=== PATIENT | female | born 1930 | race American Indian/Alaskan Native ===

== ENCOUNTER 2016-05-11 15:20 | Inpatient (IN) | payer MEDICARE ==
[2016-05-11] MEDS ORDERED: DULCOLAX PR PRN (16:46)
[2016-05-11] MEDS ORDERED: SENOKOT PO PRN (16:46)
[2016-05-11] MEDS ORDERED: NORCO 5/325 PO PRN (16:51)
--- NOTE | 2016-05-11 16:59 | History and Physical Report ---
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 In comparison, pt with drop in H/H overnight from 9.0/30.3 to 7.8/26.2; will recheck in AM, check stool for occult blood. Pt also with improved afternoon BP after medication adjustments. Will continue to follow and adjust as needed. Pt continues with functional deficits s/p AKA. Pt remains an appropriate candidate for IRU admission. PREVIOUS FUNCTIONAL STATUS: Independent with ADLs, gait, transfers CURRENT FUNCTIONAL STATUS: modA for transfers; s/u to maxA for ADLs HPI 85 y.o. female admitted to [facility] with non-healing LLE ulcer with foul odor. Pt was evaluated by Vascular surgery and recommended for left AKA secondary to extent of gangrene. Post-op course significant for uncontrolled blood pressure , ranging from 155-225/60-94. Pt was not previously on any anti-hypertensives and has not been seen by a physician in many years. Leukocytosis has improved with IV ABX, WBC 23.1 at max, 11.4 on 05/11. Pt is now admitted to IRU for aggressive therapies and ongoing medical management. Past History Past Medical History: hypertension Past Surgical History: Other (no surgeries prior to admission, now s/p Left AKA) Social history: lives with family (grandson). denies: smoking (former), alcohol abuse Family history: diabetes Medications and Allergies Allergies Allergy/AdvReac Type Severity Reaction Status Date / Time No Known Allergies Allergy Unverified 05/04/16 14:56 Home Medications Medication Instructions Recorded Confirmed Last Taken Type Acetaminophen [Acetaminophen TAB] 650 mg PO Q6H PRN #30 tablet 05/11/16 Unknown Rx HYDROcodone/APAP 5-325 [[place] 1 each PO Q4H PRN #30 tablet 05/11/16 Unknown Rx 5-325 mg TAB] Labetalol [Normodyne TAB] 200 mg PO BID tablet 05/11/16 Unknown Rx Ondansetron [Zofran INJ] 4 mg IV Q4H PRN #30 vial 05/11/16 Unknown Rx amLODIPine [Norvasc] 10 mg PO QDAY tablet 05/11/16 Unknown Rx hydrALAZINE [Apresoline INJ] 10 mg IV Q4HR PRN #30 vial 05/11/16 Unknown Rx hydrALAZINE [Apresoline TAB] 10 mg PO Q8HR #30 tablet 05/11/16 Unknown Rx Active Meds: Active Medications Acetaminophen (Tylenol) 650 mg PO Q4H PRN PRN Reason: Pain MILD(1-3)/Fever >100.5/MENDEZ Acetaminophen/Hydrocodone Bitart ([place] 5/325) 1 each PO Q4H PRN PRN Reason: Pain, Moderate (4-6) Al Hydrox/Mg Hydrox/Simethicone (Alum-Mag Hydrox-Simeth [phone]/5ml) 30 ml PO Q4H PRN PRN Reason: Indigestion Amlodipine Besylate (Norvasc) 10 mg PO QDAY DAE Bisacodyl (Dulcolax) 10 mg MO QDAY PRN PRN Reason: Constipation unrelieved by MOM Hydralazine HCl (Apresoline) 10 mg PO Q8HR DAE Labetalol HCl (Normodyne) 200 mg PO BID DAE Senna (Senokot) 8.6 mg PO Q12H PRN PRN Reason: Laxative Effect Review of Systems All systems: negative Ears, nose, mouth and throat: no headache Cardiovascular: lightheadedness, no chest pain Respiratory: no cough, no shortness of breath Gastrointestinal: no nausea, no vomiting, no constipation (+BM on today) Genitourinary Female: other (hernandez remains in place) Exam - Constitutional General appearance: no acute distress, other (lying in bed) - EENT Eyes: EOM intact ENT: hearing intact - Neck Neck: supple, normal ROM - Respiratory Respiratory effort: normal Respiratory: bilateral: CTA - Cardiovascular Rhythm: regular Heart Sounds: Present: S1 & S2 - Extremities Extremity abnormal: other (natalia in place to left residual limb; no active drainage) - Gastrointestinal General gastrointestinal: Present: soft, non-tender, non-distended, normal bowel sounds Rectal Exam: other (stage 2 sacral pressure ulcer on left ; no odor noted) - Neurologic Neurologic: CNII-XII intact, moves all extremities (2/5 left hip flexion; otherwise 4/5 for remaining extremities), other (sensation grossly intact) - Psychiatric Psychiatric: appropriate mood/affect, intact judgment & insight, memory intact, cooperative Assessment and Plan Assessment and plan: 85 y.o. 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 The patient is medically stable, however, requires ongoing medical management. Pt is appropriate for inpatient rehabilitation admission and is thought to be able to tolerate at least 3 hours of therapy a day, 5 days a week including 1.5 hours of physical therapy and 1.5 hours of occupational therapy. Patient is able to understand and follow basic directions and has attainable rehab goals. Potential barriers/complications include wound dehiscence, falls, phantom pain, syncope, worsening anemia, DVT, PE, depression. Plan 1. Rehabilitation- Pt will undergo multidisciplinary/integrative rehab PT/OT, Nursing. Areas to be addressed include, but are not limited to PT for mobility , strengthening, transfer training, ROM, endurance, stairs, balance; OT for ADLs , household tasks, adaptive equipment; Nursing for carryover of therapies, pain control, education, skin integrity, medication management, bowel/bladder management; Nutrition as needed; imaging services director for discharge planning and equipment needs. Potential interventions include appropriate assistive device or adaptive equipment. Expected overall level of functional improvement by discharge is Pily for wheelchair mobility, Pily to supervision for ADLs and transfers. Pt will tentatively be discharged home with outpatient PT. Estimated length of stay is 7-10 days. 2. s/p left AKA- dressing changes; pain control; maintain natalia 3. acute blood loss anemia- recheck CBC in AM; check stool for occult blood 4. HTN- maintain on norvasc, labetalol, and hydralazine; follow closely and adjust as needed 5. DVT px- SCDs; hold off on A/C with noted drop in H/H - Patient Problems (1) Above knee amputation of left lower extremity Current Visit: No Status: Acute (2) Acute blood loss anemia Current Visit: Yes Status: Acute (3) HTN (hypertension) Current Visit: No Status: Acute Qualifiers: Hypertension type: essential hypertension Qualified Code(s): I10 - Essential (primary) hypertension
[2016-05-11] MEDS ORDERED: ALUM-MAG HYDROX-SIMETH 200-200-20MG/5ML PO PRN (17:49)
[2016-05-11] MEDS: NORMODYNE PO SCH (22:26)
[2016-05-11] MEDS: APRESOLINE PO SCH (22:28)
[2016-05-12 05:12] LABS: Basophils % (Auto) 0.7 % (0.0-1.8); Eosinophils % (Auto) 3.2 % (0.0-4.3); Hematocrit 26.2 % (30.3-42.9); Hemoglobin 8.1 gm/dl (10.1-14.3); Mean Corpuscular HGB Conc 31 % (30-34); Mean Corpuscular Volume 71 fl (79-97); Platelet Count 302 K/mm3 (140-440); Red Blood Count 3.71 M/mm3 (3.65-5.03)
[2016-05-12 05:13] LABS: Mean Corpuscular Hemoglobin 22 pg (28-32); Red Cell Distribution Width 21.5 % (13.2-15.2)
[2016-05-12 05:36] LABS: Alanine Aminotransferase 5 units/L (7-56); Albumin 2.3 g/dL (3.9-5); Albumin/Globulin Ratio 0.8 %; Alkaline Phosphatase 56 units/L (35-129); Anion Gap 13 mmol/L; Bilirubin,Total 0.2 mg/dL (0.1-1.2); Blood Urea Nitrogen 10 mg/dL (7-17); Carbon Dioxide 27 mmol/L (22-30); Chloride 108.5 mmol/L (98-107); Glucose 98 mg/dL (65-100); Potassium 3.5 mmol/L (3.6-5.0); Sodium 145 mmol/L (137-145); Total Protein 5.1 g/dL (6.3-8.2)
[2016-05-12] MEDS: NORVASC PO SCH (09:44)
[2016-05-12] MEDS: NORMODYNE PO SCH ×2 (09:45→23:09)
[2016-05-12] MEDS: APRESOLINE PO SCH ×4 (09:46→23:15)
--- NOTE | 2016-05-12 10:59 | Progress Note ---
Assessment and Plan 85 y.o. 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 - s/p left AKA- pain controlled; maintain natalia - acute blood loss anemia- Hgb improved from yesterday, 7.8-->8.1; stool for occult blood negative - HTN- uncontrolled overnight and this AM; hydralazine increased to 25mg TID - d/c hernandez and start bladder training - Patient Problems (1) Above knee amputation of left lower extremity Current Visit: No Status: Acute (2) Acute blood loss anemia Current Visit: Yes Status: Acute (3) HTN (hypertension) Current Visit: No Status: Acute Qualifiers: Hypertension type: essential hypertension Qualified Code(s): I10 - Essential (primary) hypertension Subjective Date of service: 05/12/16 Principal diagnosis: left AKA Interval history: Pt seen this AM, F/U IRU course, s/p Left AKA. Pt noted to have loose stools this AM; thought to be secondary to Boost; will follow, however, as pt was on IV ABX during acute care course Objective - Constitutional Vitals: Vital Signs - 12hr 05/12/16 05/12/16 05/12/16 07:30 09:44 09:45 Temperature 98.2 F Pulse Rate 68 68 Pulse Rate [ 68 Left Radial] Respiratory 20 Rate Blood Pressure 188/60 188/60 Blood Pressure 188/60 [Left Arm] O2 Sat by Pulse 94 Oximetry 05/12/16 09:46 Temperature Pulse Rate 60 Pulse Rate [ Left Radial] Respiratory Rate Blood Pressure 188/60 Blood Pressure [Left Arm] O2 Sat by Pulse Oximetry General appearance: Present: no acute distress, other (sitting up in WC) - EENT Eyes: EOM intact ENT: hearing intact - Neck Neck: supple, normal ROM - Respiratory Respiratory effort: normal Extremity abnormal: other (natalia to residual left limb) - Neurologic Neurologic: CNII-XII intact, moves all extremities - Psychiatric Psychiatric: appropriate mood/affect, cooperative - Labs CBC & Chem 7: 05/12/16 04:09 05/12/16 04:09 Labs: Abnormal lab results 05/12/16 05/12/16 Range/Units 04:09 04:09 Hgb 8.1 L (10.1-14.3) gm/dl Hct 26.2 L (30.3-42.9) % MCV 71 L (79-97) fl MCH 22 L (28-32) pg RDW 21.5 H (13.2-15.2) % Lymph % (Auto) 11.4 L (13.4-35.0) % Lymph # 1.0 L (1.2-5.4) K/mm3 Seg Neutrophils % 77.8 H (40.0-70.0) % Potassium 3.5 L (3.6-5.0) mmol/L Chloride 108.5 H (98-107) mmol/L Creatinine 0.4 L (0.7-1.2) mg/dL Calcium 8.0 L (8.4-10.2) mg/dL ALT 5 L (7-56) units/L Total Protein 5.1 L (6.3-8.2) g/dL Albumin 2.3 L (3.9-5) g/dL
[2016-05-12] MEDS ORDERED: K-DUR PO ONE (11:00)
[2016-05-12] MEDS ORDERED: APRESOLINE PO SCH (11:00)
--- NOTE | 2016-05-12 13:36 | Cat Scan Report ---
CT HEAD WITHOUT CONTRAST: 05/12/16 CLINICAL: Unresponsive. TECHNIQUE: 5-mm and 2.5-mm noncontrast scans. COMPARISON:None FINDINGS: The ventricles sulci are normal for age. A small chronic left basal ganglia lacunar infarct involves the anterior limb of the internal capsule. Mild bilateral periventricular white matter hypodensities. No mass or mass effect. No hemorrhage, edema or extra-axial collection. The sinuses are clear. Normal orbits and soft tissues. The calvarium and skull base are intact. IMPRESSION: No acute change. A single chronic left basal ganglia lacunar infarct and mild bilateral chronic white matter microangiopathy.
[2016-05-13] MEDS: APRESOLINE PO SCH ×3 (07:29→23:33)
[2016-05-13] MEDS: NORMODYNE PO SCH ×2 (08:16→21:01)
[2016-05-13] MEDS: NORVASC PO SCH (08:17)
[2016-05-14 08:22] LABS: Hematocrit 27.1 % (30.3-42.9); Hemoglobin 8.3 gm/dl (10.1-14.3); Mean Corpuscular HGB Conc 31 % (30-34); Mean Corpuscular Volume 71 fl (79-97); Platelet Count 282 K/mm3 (140-440); White Blood Count 7.9 K/mm3 (4.5-11.0)
[2016-05-14 08:26] LABS: Mean Corpuscular Hemoglobin 22 pg (28-32); Red Cell Distribution Width 22.2 % (13.2-15.2)
[2016-05-14 08:42] LABS: Anion Gap 13 mmol/L; Blood Urea Nitrogen 8 mg/dL (7-17); Calcium 8.1 mg/dL (8.4-10.2); Carbon Dioxide 27 mmol/L (22-30); Chloride 104.7 mmol/L (98-107); Glucose 84 mg/dL (65-100); Sodium 141 mmol/L (137-145)
[2016-05-14] MEDS: APRESOLINE PO SCH ×3 (09:28→23:30)
[2016-05-14] MEDS: TYLENOL PO PRN (09:29)
[2016-05-14] MEDS: NORVASC PO SCH (09:30)
[2016-05-14] MEDS: NORMODYNE PO SCH ×3 (09:30→20:30)
[2016-05-14] MEDS ORDERED: TYLENOL PO PRN (10:18)
[2016-05-14] MEDS: COZAAR PO SCH (12:36)
--- NOTE | 2016-05-14 13:41 | Consultation ---
History of Present Illness - Reason for Consult Consult date: 05/13/16 Assist in management of hypertension in a patient with left AKA. - History of Present Illness Patient is an 85-year-old female with history of hypertension and left AKA. Patient's blood pressure has been very elevated with systolic blood pressure in the 200s. CT scan was unremarkable for any acute findings. Was consulted for management of hypertension. Patient denies headache, blurred vision, chest pain , palpitation, shortness of breath, PND or pedal edema. Past History Past Medical History: hypertension Past Surgical History: Other (no surgeries prior to admission, now s/p Left AKA) Social history: lives with family (grandson). denies: smoking (former), alcohol abuse Family history: diabetes Medications and Allergies Allergies Allergy/AdvReac Type Severity Reaction Status Date / Time No Known Allergies Allergy Unverified 05/04/16 14:56 Home Medications Medication Instructions Recorded Confirmed Last Taken Type Acetaminophen [Acetaminophen TAB] 650 mg PO Q6H PRN #30 tablet 05/11/16 Unknown Rx HYDROcodone/APAP 5-325 [[place] 1 each PO Q4H PRN #30 tablet 05/11/16 05/14/16 Unknown Rx 5-325 mg TAB] Labetalol [Normodyne TAB] 200 mg PO BID tablet 05/11/16 05/14/16 Unknown Rx Ondansetron [Zofran INJ] 4 mg IV Q4H PRN #30 vial 05/11/16 05/14/16 Unknown Rx amLODIPine [Norvasc] 10 mg PO QDAY tablet 05/11/16 05/14/16 Unknown Rx hydrALAZINE [Apresoline INJ] 10 mg IV Q4HR PRN #30 vial 05/11/16 05/14/16 Unknown Rx hydrALAZINE [Apresoline TAB] 10 mg PO Q8HR #30 tablet 05/11/16 05/14/16 Unknown Rx Active Meds: Active Medications Acetaminophen (Tylenol) 650 mg PO Q4H PRN PRN Reason: Pain MILD(1-3)/Fever >100.5/MENDEZ Last Admin: 05/14/16 09:29 Dose: 650 mg Acetaminophen (Tylenol) 650 mg PO Q6H PRN PRN Reason: Non Cardiac Pain or Temp>100.5 Acetaminophen/Hydrocodone Bitart ([place] 5/325) 1 each PO Q4H PRN PRN Reason: Pain, Moderate (4-6) Al Hydrox/Mg Hydrox/Simethicone (Alum-Mag Hydrox-Simeth [phone]/5ml) 30 ml PO Q4H PRN PRN Reason: Indigestion Amlodipine Besylate (Norvasc) 10 mg PO QDAY [facility] [place] Last Admin: 05/14/16 09:30 Dose: 10 mg Bisacodyl (Dulcolax) 10 mg UT QDAY PRN PRN Reason: Constipation unrelieved by MOM Hydralazine HCl (Apresoline) 10 mg PO Q8H [facility] [place] Last Admin: 05/14/16 09:28 Dose: 10 mg Hydralazine HCl (Apresoline) 10 mg IV Q4HR PRN PRN Reason: Blood Pressure Labetalol HCl (Normodyne) 200 mg PO TID [facility] [place] Losartan Potassium (Cozaar) 100 mg PO QDAY [facility] [place] Last Admin: 05/14/16 12:36 Dose: 100 mg Senna (Senokot) 8.6 mg PO Q12H PRN PRN Reason: Laxative Effect Review of Systems Constitutional: no weight loss, no fever, no chills Ears, nose, mouth and throat: no ear pain, no nasal congestion, no epistaxis, no bleeding gums, no dysphagia, no hoarseness, no sore throat, no odynophagia, no headache Breasts: normal Cardiovascular: no chest pain, no orthopnea, no palpitations, no edema, no syncope, no shortness of breath, no dyspnea on exertion, no paroxysmal nocturnal dyspnea Respiratory: no cough, no shortness of breath, no wheezing Gastrointestinal: no abdominal pain, no nausea, no vomiting, no diarrhea, no constipation, no change in bowel habits, no hematemesis, no melena Genitourinary Female: no flank pain, no dysuria, no urinary frequency, no vaginal discharge Rectal: no pain, no incontinence, no hemorrhoids Musculoskeletal: no neck stiffness, no neck pain, no low back pain, no leg numbness/tingling, no morning stiffness, no muscle weakness, no muscle cramps Integumentary: no rash, no pruritis, no redness, no lesions Neurological: no head injury, no paralysis, no numbness, no tingling Psychiatric: no anxiety, no depression Endocrine: no cold intolerance, no heat intolerance, no polyphagia, no excessive thirst, no polydipsia, no polyuria, no palpatations Hematologic/Lymphatic: no easy bruising, no easy bleeding, no lymphadenopathy Exam - Constitutional Vitals: Temp Pulse Resp BP Pulse Ox 96.8 F L 52 L 18 149/66 95 05/13/16 20:33 05/14/16 12:36 05/14/16 11:40 05/14/16 12:36 05/14/16 11:40 General appearance: Present: no acute distress, well-nourished - EENT Eyes: Present: PERRL ENT: hearing intact, clear oral mucosa - Neck Neck: Present: supple, normal ROM - Respiratory Respiratory effort: normal Respiratory: bilateral: CTA - Cardiovascular Heart Sounds: Present: S1 & S2. Absent: rub, click - Extremities Extremities: no ischemia, No edema Extremity abnormal: other (left AKA) Peripheral Pulses: within normal limits - Abdominal General gastrointestinal: Present: soft, non-tender, non-distended, normal bowel sounds Female genitourinary: Present: normal - Integumentary Integumentary: Present: clear, warm, dry - Musculoskeletal Musculoskeletal: gait normal, strength equal bilaterally - Psychiatric Psychiatric: appropriate mood/affect, intact judgment & insight - Neurologic Neurologic: CNII-XII intact Results - Labs CBC & Chem 7: 05/14/16 07:27 05/14/16 07:27 Labs: Abnormal lab results 05/14/16 05/14/16 Range/Units 07:27 07:27 Hgb 8.3 L (10.1-14.3) gm/dl Hct 27.1 L (30.3-42.9) % MCV 71 L (79-97) fl MCH 22 L (28-32) pg RDW 22.2 H (13.2-15.2) % Creatinine 0.4 L (0.7-1.2) mg/dL Calcium 8.1 L (8.4-10.2) mg/dL Assessment and Plan 1. Hypertensive urgency: Increase labetalol to 200 mg 3 times a day from twice a day, commence Losartan 100 mg daily. continue with Amlodipine 10 mg daily. 2. Left AKA-stable: Pt /OT per Rehab Physician 3. Anemia: Likely secondary to Chronic disease. Anemia w/u with iron, TIBC, B12 , Folate,
--- NOTE | 2016-05-14 15:48 | IRU Plan of Care ---
Interdisciplinary Plan of Care - IP IRU INTERDISCIPLINARY PLAN: [facility] Inpatient Rehab Unit Plan of Care IRU Interdisciplinary Care Plan Start: 05/11/16 16: 53 Freq: Admission then PRN Status: Active Document 05/14/16 09:55 DB (Rec: 05/14/16 10:00 DB [id number]) Interdisciplinary Problem List Interdisciplinary Problem List Interdisciplinary Problem List Impaired Bathing/Grooming Query Text:Answers will Trigger Problems Impaired Dressing and Outcomes on Worklist. Impaired Mobility Impaired Transfers Impaired Bladder/Bowel Management Impaired Toileting Pain Management Knowledge Deficits Impaired Skin/Tissue Integrity Impaired Safety Medications Education IRU Interdisciplinary Care Plan Therapy Services Therapy Services Will Include: Physical Therapy Query Text:Patient will be seen for a Occupational Therapy minimum of 3 hours of daily therapy 5 out of 7 days a week. Therapy intensity may be adjusted within a 7 consecutive day period to effectively serve the individual needs of the patient. Treatment Frequency/Intensity/Duration Treatment Frequency 5 days per week Treatment Intensity 1.5 hours per discipline (PT/OT ) daily Treatment Duration 10-14 days Problem Area: Eating/Swallowing Eating/Swallowing Outcomes Eating/Swallowing Interventions Problem Area: Bathing/Grooming Bathing/Grooming Outcomes Improve [place] w/ Grooming Improve [place] w/ Bathing Bathing/Grooming Interventions ADL Training Therapeutic Activity Activity Tolerance Work Patient/Caregiver Education Problem Area: Dressing Dressing Outcomes Improve [place] w/ UB Dressing Improve [place] w/ LB Dressing Dressing Interventions ADL Training Neuromuscular Re-Education Therapeutic Exercise Balance Work Patient/Caregiver Education Problem Area: Mobility Mobility Outcomes Improve [place] w/ Bed Mobility Improve [place] w/ Ambulation Improve [place] w/ Stairs /Curb Improve [place] w/ Wheelchair Mobility Interventions Therapeutic Exercise Neuromuscular Re-Ed. Activity Tolerance Work Use of Assistive Devices Patient/Caregiver Education Bed Mobility Work Gait Training W/C Mobility Work Problem Area: Transfers Transfers Outcomes Improve [place] w/ Bed Transfers Improve [place] w/ Toilet Transfers Improve [place] w/ Tub/ Shower Transfers Improve [place] w/ Car Transfers Transfers Interventions Transfer Training Therapeutic Exercise Neuromuscular Re-Education Activity Tolerance Work Use of Assistive Devices Patient/Caregiver Education Problem Area: Bowel/Bladder Managment Bowel/Bladder Outcomes Continent of Bladder Continent of Bowel Bowel/Bladder Interventions Bladder Training Program Bowel Training Program Medication Education Patient/Caregiver Education Problem Area: Toileting Toileting Outcomes Improve [place] w/ Toileting Toileting Interventions ADL Training Balance Work Patient/Caregiver Education Problem Area: Nutrition Nutrition Outcomes Understand and Comply w/ Diet Nutrition Interventions Nutritional Counseling Monitor Nutrient Intake Patient/Caregiver Education Problem Area: Comprehension Comprehension Outcomes Comprehension Interventions Problem Area: Expression Expression Outcomes Expression Interventions Problem Area: Problem Solving Problem Solving Outcomes Problem Solving Interventions Problem Area: Memory Memory Outcomes Memory Interventions Problem Area: Pain Management Pain Management Outcomes Demonstrate/Verbalize Pain Strategies Pain Management Interventions Medication Management Positioning/Turning Patient/Caregiver Education Problem Area: Knowledge Deficits Knowledge Deficits Outcomes Verbalize Precautions Knowledge Deficits Interventions Medication Use Education Body Mechanics/Joint Protection Education Disease Management Education Health Maintainence Education Safety Education Problem Area: Skin/Tissue Integrity Skin/Tissue Integrity Outcomes Exhibit Healing of Wound/ Incision Demonstrate Understanding of Pressure Relief Demonstrate Understanding of Self Wound Care Skin/Tissue Integrity Interventions Skin/Wound Care Pressure Relief Instruction Dressing Change Education Positioning/Turning Problem Area: Social Interaction Social Interaction Outcomes Social Interaction Interventions Problem Area: Adjustment to Disability Adjustment to Disability Outcomes Adjustment to Disability Interventions Problem Area: Discharge Concerns Discharge Concerns Outcomes Discharge Home w/ Necessary Equipment Have Home Health/Outpatient Services Discharge Concerns Interventions Discharge Planning Family/Caregiver Conference Family/Caregiver Training Problem Area: Community Reintegration Community Reintegration Outcomes Demonstrate Understanding of Community Resources Community Reintegration Interventions Provide Community Resources Problem Area: Home Management Home Management Outcomes Home Management Interventions Problem Area: Safety Safety Outcomes Provide Safe Environment Perform Selfcare Safely Demonstrate Good Safety w/ Transfers/Mobility Safety Interventions Identify Fall Risk Floweree Pt. to Environment Reduce Environmental Hazards Problem Area: Medication Education Medication Education Outcomes Patient/Caregiver will Verbalize Understanding of Medications Medication Education Interventions Explain Administration/Side Effects/Interactions Problem Area: Diabetes Education Diabetes Education Outcomes Diabetes Education Interventions Problem Area: Oxygenation Oxygenation Outcomes Oxygenation Interventions Problem Area: Cardiovascular Cardiovascular Outcomes Cardiovascular Interventions Physician Only Medical Prognosis and Rehabilitation Patient demonstrates good Potential (Completed by Physician) rehab potential. Medical Prognosis: Good This plan of care has been developed based on the findings from the pre- admission assessment, post admission physician evaluation, information gathered from the assessments from all therapy disciplines and other pertinent clinicians. The plan of care has been reviewed and discussed in collaboration with the interdisciplinary team. The plan of care will be reviewed and updated at least weekly. 85 y.o. 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 The patient remains at risk for wound dehiscence, falls, phantom pain, syncope, worsening anemia, DVT, PE. Blood pressure remains uncontrolled; IM consulted for better management; pt became lethargic over weekend with increased dose of hydralazine, so this will need to be monitored closely. Ulo removed over weekend; +bladder incontinence; toileting schedule initiated; no further diarrhea reported. Pt is tolerating therapies and has ongoing functional deficits. Pt remains an appropriate candidate for IRU admission.
--- NOTE | 2016-05-14 15:57 | Progress Note ---
Assessment and Plan 85 y.o. 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 - s/p left AKA- pain controlled; maintain natalia - acute blood loss anemia- Hgb continues to slowly improve - HTN- remains uncontrolled; appreciate IM consult, med changes noted; follow BP closely as pt becomes lethargic when BP drops - toileting schedule for bladder incontinence - stage 2 sacral pressure ulcer- ongoing wound care - hypokalemia- resolved - Patient Problems (1) Above knee amputation of left lower extremity Current Visit: Yes Status: Acute (2) Acute blood loss anemia Current Visit: Yes Status: Acute (3) HTN (hypertension) Current Visit: No Status: Acute Qualifiers: Hypertension type: essential hypertension Qualified Code(s): I10 - Essential (primary) hypertension (4) Bladder incontinence Current Visit: Yes Status: Acute Qualifiers: Urinary Incontinence type: U (5) Stage II pressure ulcer of sacral region Current Visit: Yes Status: Acute Subjective Date of service: 05/14/16 Principal diagnosis: left AKA Interval history: Pt seen this AM in room, F/U IRU course, s/p Left AKA. Denies any further loose stools. Reports phantom pain at residual limb that started on today; will follow Objective - Constitutional Vitals: Vital Signs - 12hr 05/14/16 05/14/16 05/14/16 09:00 09:28 10:00 Pulse Rate 62 Pulse Rate [ 65 Left Radial] Respiratory 18 Rate Blood Pressure 216/88 Blood Pressure 200/78 [Left Arm] O2 Sat by Pulse Oximetry 05/14/16 05/14/16 05/14/16 11:40 12:36 14:34 Pulse Rate 52 L 57 L Pulse Rate [ 52 L Left Radial] Respiratory 18 Rate Blood Pressure 149/66 157/58 Blood Pressure 149/66 [Left Arm] O2 Sat by Pulse 95 Oximetry General appearance: Present: no acute distress, other (sitting up in bed) - EENT Eyes: EOM intact ENT: hearing intact - Neck Neck: supple, normal ROM - Respiratory Respiratory effort: normal Respiratory: bilateral: CTA - Cardiovascular Rhythm: regular Heart Sounds: Present: S1 & S2 - Gastrointestinal General gastrointestinal: Present: soft, non-tender, non-distended, normal bowel sounds - Neurologic Neurologic: CNII-XII intact - Psychiatric Psychiatric: cooperative (lethargic) - Allied health notes Allied health notes reviewed: PT (maxA for bed mobility and transfers) - Labs CBC & Chem 7: 05/14/16 07:27 05/14/16 07:27 Labs: Abnormal lab results 05/14/16 05/14/16 Range/Units 07:27 07:27 Hgb 8.3 L (10.1-14.3) gm/dl Hct 27.1 L (30.3-42.9) % MCV 71 L (79-97) fl MCH 22 L (28-32) pg RDW 22.2 H (13.2-15.2) % Creatinine 0.4 L (0.7-1.2) mg/dL Calcium 8.1 L (8.4-10.2) mg/dL
[2016-05-15] MEDS: NORMODYNE PO SCH ×3 (08:50→21:00)
[2016-05-15] MEDS: NORVASC PO SCH (08:50)
[2016-05-15] MEDS: COZAAR PO SCH (08:51)
[2016-05-15] MEDS: APRESOLINE PO SCH ×2 (08:57→19:01)
--- NOTE | 2016-05-15 09:26 | Progress Note ---
Assessment and Plan 1. Malignant Hypertensive: Increase labetalol to 200 mg 3 times a day from twice a day, commence Losartan 100 mg daily. continue with Amlodipine 10 mg daily.Consider clonidine if No doses of prior meds are omitted 2. Left AKA-stable: Pt /OT per Rehab Physician 3. Anemia: Likely secondary to Chronic disease. Anemia w/u with iron, TIBC, B12 , Folate, Subjective Date of service: 05/15/16 Principal diagnosis: HTN, left AKA Interval history: No Headache. BP still elevated Objective - Constitutional Vitals: Vital Signs - 12hr 05/14/16 05/15/16 05/15/16 23:30 08:50 08:51 Pulse Rate 72 62 62 Blood Pressure 190/72 207/84 207/84 General appearance: Present: no acute distress, well-nourished - EENT Eyes: PERRL, EOM intact ENT: hearing intact, clear oral mucosa Ears: bilateral: normal - Neck Neck: supple, normal ROM - Respiratory Respiratory effort: normal Respiratory: bilateral: CTA - Breasts Breasts: normal - Cardiovascular Rhythm: regular Heart Sounds: Present: S1 & S2. Absent: gallop, rub Extremities: pulses intact, No edema, normal color, Full ROM Extremity abnormal: other (left AKA) - Gastrointestinal General gastrointestinal: Present: soft, non-tender, non-distended, normal bowel sounds - Genitourinary Female genitourinary: normal - Integumentary Integumentary: clear, warm, dry - Musculoskeletal Musculoskeletal: 1, strength equal bilaterally - Neurologic Neurologic: moves all extremities - Psychiatric Psychiatric: memory intact, appropriate mood/affect, intact judgment & insight - Labs CBC & Chem 7: 05/14/16 07:27 05/14/16 07:27
--- NOTE | 2016-05-15 14:01 | Progress Note ---
Assessment and Plan 85 y.o. 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 - s/p left AKA- pain controlled; maintain natalia - HTN- remains uncontrolled; pt continues with intermittent lethargy when BP drops; discussed with IM; continue to follow closely - toileting schedule for bladder incontinence - stage 2 sacral pressure ulcer- ongoing wound care - Patient Problems (1) Above knee amputation of left lower extremity Current Visit: Yes Status: Acute (2) HTN (hypertension) Current Visit: No Status: Acute Qualifiers: Hypertension type: essential hypertension Qualified Code(s): I10 - Essential (primary) hypertension (3) Bladder incontinence Current Visit: Yes Status: Acute Qualifiers: Urinary Incontinence type: urinary incontinence without sensory awareness Qualified Code(s): N39.42 - Incontinence without sensory awareness (4) Stage II pressure ulcer of sacral region Current Visit: Yes Status: Acute Subjective Date of service: 05/15/16 Principal diagnosis: left AKA Interval history: Pt seen in dining room on today, F/U IRU course, s/p Left AKA. Pt denies any pain; eating lunch with some spillage noted Objective - Constitutional Vitals: Vital Signs - 12hr 05/15/16 05/15/16 05/15/16 08:00 08:50 08:51 Temperature 97.7 F Pulse Rate 62 62 Pulse Rate [ 62 Left Brachial] Respiratory 18 Rate Blood Pressure 207/84 207/84 Blood Pressure 207/84 [Left Arm] O2 Sat by Pulse 97 Oximetry 05/15/16 10:30 Temperature Pulse Rate Pulse Rate [ 47 L Left Brachial] Respiratory Rate Blood Pressure Blood Pressure 110/50 [Left Arm] O2 Sat by Pulse Oximetry General appearance: Present: no acute distress - EENT Eyes: EOM intact ENT: hearing intact - Neck Neck: supple, normal ROM - Respiratory Respiratory effort: normal Extremities: No edema - Musculoskeletal Musculoskeletal: generalized weakness - Neurologic Neurologic: CNII-XII intact - Psychiatric Psychiatric: appropriate mood/affect, cooperative - Allied health notes Allied health notes reviewed: PT (maxA for transfers and WC mobility), OT ( total A with transfers; maxA for sitting balance) - Labs CBC & Chem 7: 05/14/16 07:27 05/14/16 07:27
[2016-05-16] MEDS: APRESOLINE PO SCH ×4 (01:09→23:50)
--- NOTE | 2016-05-16 04:02 | Progress Note ---
Hospitalist Physical - Constitutional Vitals: Temp Pulse Resp BP Pulse Ox 97.6 F 60 20 148/88 99 05/15/16 20:00 05/15/16 21:00 05/15/16 20:00 05/15/16 21:00 05/15/16 20:00 General appearance: Present: no acute distress Results - Labs CBC & Chem 7: 05/14/16 07:27 05/14/16 07:27 Labs: Laboratory Last Values WBC 7.9 K/mm3 (4.5-11.0) 05/14/16 07:27 RBC 3.80 M/mm3 (3.65-5.03) 05/14/16 07:27 Hgb 8.3 gm/dl (10.1-14.3) L 05/14/16 07:27 Hct 27.1 % (30.3-42.9) L 05/14/16 07:27 MCV 71 fl (79-97) L 05/14/16 07:27 MCH 22 pg (28-32) L 05/14/16 07:27 MCHC 31 % (30-34) 05/14/16 07:27 RDW 22.2 % (13.2-15.2) H 05/14/16 07:27 Plt Count 282 K/mm3 (140-440) 05/14/16 07:27 Lymph % (Auto) 11.4 % (13.4-35.0) L 05/12/16 04:09 [place] % (Auto) 6.9 % (0.0-7.3) 05/12/16 04:09 Eos % (Auto) 3.2 % (0.0-4.3) 05/12/16 04:09 Baso % (Auto) 0.7 % (0.0-1.8) 05/12/16 04:09 Lymph # 1.0 K/mm3 (1.2-5.4) L 05/12/16 04:09 [place] # 0.6 K/mm3 (0.0-0.8) 05/12/16 04:09 Eos # 0.3 K/mm3 (0.0-0.4) 05/12/16 04:09 Baso # 0.1 K/mm3 (0.0-0.1) 05/12/16 04:09 Seg Neutrophils % 77.8 % (40.0-70.0) H 05/12/16 04:09 Seg Neutrophils # 7.0 K/mm3 (1.8-7.7) 05/12/16 04:09 Sodium 141 mmol/L (137-145) 05/14/16 07:27 Potassium 4.0 mmol/L (3.6-5.0) 05/14/16 07:27 Chloride 104.7 mmol/L (98-107) 05/14/16 07:27 Carbon Dioxide 27 mmol/L (22-30) 05/14/16 07:27 Anion Gap 13 mmol/L 05/14/16 07:27 BUN 8 mg/dL (7-17) 05/14/16 07:27 Creatinine 0.4 mg/dL (0.7-1.2) L 05/14/16 07:27 Estimated GFR > 60 ml/min 05/14/16 07:27 BUN/Creatinine Ratio 20.00 % 05/14/16 07:27 Glucose 84 mg/dL (65-100) 05/14/16 07:27 POC Glucose 182 (70-105) H 05/12/16 13:12 Hemoglobin A1c 5.8 % (4-6) 05/12/16 04:09 Calcium 8.1 mg/dL (8.4-10.2) L 05/14/16 07:27 Total Bilirubin 0.2 mg/dL (0.1-1.2) 05/12/16 04:09 AST 14 units/L (5-40) 05/12/16 04:09 ALT 5 units/L (7-56) L 05/12/16 04:09 Alkaline Phosphatase 56 units/L (35-129) 05/12/16 04:09 Total Protein 5.1 g/dL (6.3-8.2) L 05/12/16 04:09 Albumin 2.3 g/dL (3.9-5) L 05/12/16 04:09 Albumin/Globulin Ratio 0.8 % 05/12/16 04:09
[2016-05-16] MEDS: NORVASC PO SCH (09:51)
[2016-05-16] MEDS: NORMODYNE PO SCH ×2 (09:51→14:00)
[2016-05-16] MEDS: COZAAR PO SCH (09:52)
[2016-05-16] MEDS ORDERED: NORMODYNE PO SCH ×2 (14:00→14:06)
--- NOTE | 2016-05-16 14:15 | Progress Note ---
Assessment and Plan 85 y.o. 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 Pt cannot actively participate with therapies due to lethargy likely caused by BP meds; may need to trial an alternative med to assist with better control - toileting schedule for bladder incontinence - stage 2 sacral pressure ulcer- ongoing wound care - Patient Problems (1) Above knee amputation of left lower extremity Current Visit: Yes Status: Acute (2) HTN (hypertension) Current Visit: No Status: Acute Qualifiers: Hypertension type: essential hypertension Qualified Code(s): I10 - Essential (primary) hypertension (3) Bladder incontinence Current Visit: Yes Status: Acute Qualifiers: Urinary Incontinence type: urinary incontinence without sensory awareness Qualified Code(s): N39.42 - Incontinence without sensory awareness (4) Stage II pressure ulcer of sacral region Current Visit: Yes Status: Acute Subjective Date of service: 05/16/16 Principal diagnosis: left AKA Interval history: Pt seen in dining room and in PT, F/U IRU course, s/p Left AKA. Chart reviewed from admission and acute care; increased lethargy noted since initiating on labetalol on 05/10/2016. Pending return call from to discuss. Will reduce dose and follow BP and lethargy Objective - Constitutional Vitals: Vital Signs - 12hr 05/16/16 05/16/16 05/16/16 07:30 09:51 11:24 Temperature 99.5 F Pulse Rate 68 51 L Pulse Rate [ 68 Left Brachial] Respiratory 20 Rate Blood Pressure 168/68 145/83 Blood Pressure 168/68 [Left Arm] O2 Sat by Pulse 95 Oximetry General appearance: Present: other (opens eyes to name, however, limited participation with therapies) - EENT Eyes: EOM intact ENT: hearing intact - Neck Neck: supple - Respiratory Respiratory effort: normal Respiratory: bilateral: CTA - Cardiovascular Heart Sounds: Present: S1 & S2 Extremities: No edema - Gastrointestinal General gastrointestinal: Present: soft, non-tender, non-distended, normal bowel sounds - Psychiatric Psychiatric: other (lethargic; feeding self intermittently durign lunch) - Labs CBC & Chem 7: 05/14/16 07:27 05/14/16 07:27
--- NOTE | 2016-05-16 18:06 | Progress Note ---
Assessment and Plan 1. Malignant Hypertensive: improving. D/c Labetalol b/c of lethergy and commence pt on Nifedipine 60 mg bid. d/c Dr Tobar 2. Left AKA-stable: Pt /OT per Rehab Physician 3. Anemia: Likely secondary to Chronic disease. Anemia w/u with iron, TIBC, B12 , Folate, Trend H/H Subjective Date of service: 05/16/16 Principal diagnosis: HTN, left AKA Interval history: No Headache. Lethergic. D/c with Physical therapy MD. Objective - Constitutional Vitals: Vital Signs - 12hr 05/16/16 05/16/16 05/16/16 07:30 09:51 11:24 Temperature 99.5 F Pulse Rate 68 51 L Pulse Rate [ 68 Left Brachial] Respiratory 20 Rate Blood Pressure 168/68 145/83 Blood Pressure 168/68 [Left Arm] O2 Sat by Pulse 95 Oximetry 05/16/16 14:57 Temperature Pulse Rate 58 L Pulse Rate [ Left Brachial] Respiratory Rate Blood Pressure 173/111 Blood Pressure [Left Arm] O2 Sat by Pulse Oximetry General appearance: Present: no acute distress, other (lethergic for meaningful PT/OT) - EENT Eyes: PERRL ENT: hearing intact, clear oral mucosa Ears: bilateral: normal - Neck Neck: supple - Respiratory Respiratory effort: normal Respiratory: bilateral: CTA - Cardiovascular Rhythm: regular Heart Sounds: Present: S1 & S2 Extremities: no ischemia Extremity abnormal: other (left AKA) - Gastrointestinal General gastrointestinal: Present: soft, non-tender - Genitourinary Female genitourinary: normal - Integumentary Integumentary: clear, warm - Musculoskeletal Musculoskeletal: strength equal bilaterally - Neurologic Neurologic: CNII-XII intact, moves all extremities - Psychiatric Psychiatric: memory intact, appropriate mood/affect, intact judgment & insight - Labs CBC & Chem 7: 05/14/16 07:27 05/14/16 07:27
[2016-05-17] MEDS: APRESOLINE PO SCH ×2 (09:39→16:45)
[2016-05-17] MEDS: COZAAR PO SCH (10:01)
--- NOTE | 2016-05-17 13:59 | Progress Note ---
Assessment and Plan 85 y.o. 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 Barriers- possible CVA, fluctuating lethargy, uncontrolled BP. - Patient Problems (1) Above knee amputation of left lower extremity Current Visit: Yes Status: Acute (2) HTN (hypertension) Current Visit: No Status: Acute Qualifiers: Hypertension type: essential hypertension Qualified Code(s): I10 - Essential (primary) hypertension (3) Bladder incontinence Current Visit: Yes Status: Acute Qualifiers: Urinary Incontinence type: urinary incontinence without sensory awareness Qualified Code(s): N39.42 - Incontinence without sensory awareness (4) Stage II pressure ulcer of sacral region Current Visit: Yes Status: Acute Subjective Date of service: 05/17/16 Principal diagnosis: HTN, left AKA Interval history: Pt seen in room this AM, F/U IRU course, s/p Left AKA. Noted to have increased alertness initially, feeding self breakfast. However, later noted to cough on thin liquids; right sided weakness noted and increased drooling. Case discussed with IM; CT Brain ordered; made NPO for MBS on today Objective - Constitutional Vitals: Vital Signs - 12hr 05/17/16 05/17/16 05/17/16 07:30 09:39 10:01 Temperature 97.5 F L Pulse Rate 62 62 Pulse Rate [ 62 Left Brachial] Respiratory 18 Rate Blood Pressure 184/60 184/60 Blood Pressure 184/60 [Left Arm] O2 Sat by Pulse 95 Oximetry General appearance: Present: no acute distress - EENT Eyes: EOM intact ENT: hearing intact - Neck Neck: supple - Respiratory Respiratory effort: normal Respiratory: bilateral: CTA - Cardiovascular Rhythm: regular Heart Sounds: Present: S1 & S2 Extremities: No edema - Gastrointestinal General gastrointestinal: Present: soft, non-tender, non-distended, normal bowel sounds - Integumentary Integumentary: clear - Musculoskeletal Musculoskeletal: 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
--- NOTE | 2016-05-17 14:18 | Cat Scan Report ---
CT scan of head without contrast: Compared to 05/12/16. History: Weakness, headache. Findings: Ventricles are normal in size and midline in location. Focal new ill-defined area of low attenuation noted at the left occipital region adjacent to the inner table of the calvarium measuring 3 x 2 cm in diameter. Periventricular area of low attenuation without significant interval change. No extra-axial fluid collection. Volume loss. Impression: Focal area of low attenuation left occipital region probably suggestive of acute/subacute ischemia. No hemorrhage..
--- NOTE | 2016-05-17 14:36 | Fluoroscopy Report ---
MODIFIED BARIUM SWALLOW INDICATION: Dysphagia. COMPARISON: None similar. FINDINGS: Fluoroscopy provided by radiologist for speech therapist to assess the swallowing mechanism. Food items of various consistencies given. No penetration or aspiration identified. IMPRESSION: Successful modified barium swallow. Please refer to detailed report from speech pathologist. Thank you for the opportunity to participate in this patient's care.
--- NOTE | 2016-05-17 16:29 | Progress Note ---
Assessment and Plan - Patient Problems (1) CVA (cerebral vascular accident) Current Visit: Yes Status: Acute Qualifiers: CVA mechanism: C Precerebral and cerebral artery: P Laterality of affected vessel: L Plan to address problem: Stroke protocol: antiplatet therapy, statin, systolic BP goal overnight betwen 165-180, (2) Stage II pressure ulcer of sacral region Current Visit: Yes Status: Acute Plan to address problem: wound care, Q 2 turns, (3) Arterial insufficiency of lower extremity Current Visit: No Status: Acute (4) HTN (hypertension) Current Visit: No Status: Acute Qualifiers: Hypertension type: essential hypertension Qualified Code(s): I10 - Essential (primary) hypertension Plan to address problem: Monitor BP q shift, continue currrent therapy, History Interval history: Pt sitting in chair, Pt has minimal right facial droop. No reported nursing events. Pt alert and responsive. Hospitalist Physical - Constitutional Vitals: Temp Pulse Resp BP Pulse Ox 97.5 F L 62 18 184/60 98 05/17/16 07:30 05/17/16 10:01 05/17/16 07:30 05/17/16 10:01 05/17/16 10:00 General appearance: Present: no acute distress - EENT Eyes: Present: PERRL, EOM intact ENT: hearing intact - Neck Neck: Present: supple - Respiratory Respiratory: bilateral: diminished - Cardiovascular Rhythm: regular Heart Sounds: Present: S1 & S2 - Extremities Extremities: no ischemia Peripheral Pulses: within normal limits - Abdominal General gastrointestinal: soft, non-distended - Integumentary Integumentary: Present: clear, dry - Psychiatric Psychiatric: appropriate mood/affect - Neurologic Neurologic: focal deficits, moves all extremities, no gait normal Results - Labs CBC & Chem 7: 05/14/16 07:27 05/14/16 07:27 Labs: Laboratory Last Values WBC 7.9 K/mm3 (4.5-11.0) 05/14/16 07:27 RBC 3.80 M/mm3 (3.65-5.03) 05/14/16 07:27 Hgb 8.3 gm/dl (10.1-14.3) L 05/14/16 07:27 Hct 27.1 % (30.3-42.9) L 05/14/16 07:27 MCV 71 fl (79-97) L 05/14/16 07:27 MCH 22 pg (28-32) L 05/14/16 07:27 MCHC 31 % (30-34) 05/14/16 07:27 RDW 22.2 % (13.2-15.2) H 05/14/16 07:27 Plt Count 282 K/mm3 (140-440) 05/14/16 07:27 Lymph % (Auto) 11.4 % (13.4-35.0) L 05/12/16 04:09 [place] % (Auto) 6.9 % (0.0-7.3) 05/12/16 04:09 Eos % (Auto) 3.2 % (0.0-4.3) 05/12/16 04:09 Baso % (Auto) 0.7 % (0.0-1.8) 05/12/16 04:09 Lymph # 1.0 K/mm3 (1.2-5.4) L 05/12/16 04:09 [place] # 0.6 K/mm3 (0.0-0.8) 05/12/16 04:09 Eos # 0.3 K/mm3 (0.0-0.4) 05/12/16 04:09 Baso # 0.1 K/mm3 (0.0-0.1) 05/12/16 04:09 Seg Neutrophils % 77.8 % (40.0-70.0) H 05/12/16 04:09 Seg Neutrophils # 7.0 K/mm3 (1.8-7.7) 05/12/16 04:09 Sodium 141 mmol/L (137-145) 05/14/16 07:27 Potassium 4.0 mmol/L (3.6-5.0) 05/14/16 07:27 Chloride 104.7 mmol/L (98-107) 05/14/16 07:27 Carbon Dioxide 27 mmol/L (22-30) 05/14/16 07:27 Anion Gap 13 mmol/L 05/14/16 07:27 BUN 8 mg/dL (7-17) 05/14/16 07:27 Creatinine 0.4 mg/dL (0.7-1.2) L 05/14/16 07:27 Estimated GFR > 60 ml/min 05/14/16 07:27 BUN/Creatinine Ratio 20.00 % 05/14/16 07:27 Glucose 84 mg/dL (65-100) 05/14/16 07:27 POC Glucose 182 (70-105) H 05/12/16 13:12 Hemoglobin A1c 5.8 % (4-6) 05/12/16 04:09 Calcium 8.1 mg/dL (8.4-10.2) L 05/14/16 07:27 Total Bilirubin 0.2 mg/dL (0.1-1.2) 05/12/16 04:09 AST 14 units/L (5-40) 05/12/16 04:09 ALT 5 units/L (7-56) L 05/12/16 04:09 Alkaline Phosphatase 56 units/L (35-129) 05/12/16 04:09 Total Protein 5.1 g/dL (6.3-8.2) L 05/12/16 04:09 Albumin 2.3 g/dL (3.9-5) L 05/12/16 04:09 Albumin/Globulin Ratio 0.8 % 05/12/16 04:09
[2016-05-17] MEDS ORDERED: SODIUM CHLORIDE FLUSH SYRINGE 10 ML IV PRN (16:33)
[2016-05-17] MEDS: APRESOLINE IV PRN ×2 (16:44→21:02)
[2016-05-17] MEDS: ZOCOR PO SCH (21:02)
[2016-05-18] MEDS: APRESOLINE PO SCH ×4 (00:49→23:46)
[2016-05-18] MEDS: COZAAR PO SCH (08:01)
[2016-05-18] MEDS: ASPIRIN PO SCH (08:01)
[2016-05-18] MEDS: APRESOLINE IV PRN ×3 (08:02→20:35)
--- NOTE | 2016-05-18 13:01 | Progress Note ---
Assessment and Plan 85 y.o. 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 - s/p left AKA- maintain natalia; denies pain - acute/subacute left occipital CVA- right hemiparesis; initiated on ASA and statin - dysphagia- continue COMPENSATION INTERN; diet downgraded on yesterday to pureed with NTL which pt tolerated well on today - HTN- improved following AM meds - toileting schedule for bladder incontinence - stage 2 sacral pressure ulcer- ongoing wound care - Patient Problems (1) Above knee amputation of left lower extremity Current Visit: Yes Status: Acute (2) HTN (hypertension) Current Visit: No Status: Acute Qualifiers: Hypertension type: essential hypertension Qualified Code(s): I10 - Essential (primary) hypertension (3) Bladder incontinence Current Visit: Yes Status: Acute Qualifiers: Urinary Incontinence type: urinary incontinence without sensory awareness Qualified Code(s): N39.42 - Incontinence without sensory awareness (4) Stage II pressure ulcer of sacral region Current Visit: Yes Status: Acute (5) Acute right hemiparesis Current Visit: Yes Status: Acute (6) Dysphagia as late effect of cerebrovascular accident (CVA) Current Visit: Yes Status: Acute (7) CVA (cerebral vascular accident) Current Visit: Yes Status: Acute Qualifiers: CVA mechanism: C Precerebral and cerebral artery: P Laterality of affected vessel: L Subjective Date of service: 05/18/16 Principal diagnosis: HTN, left AKA Interval history: Pt seen in room this AM, F/U IRU course, s/p Left AKA. Reports not sleeping well last night; pt informed of +CVA on CT yesterday. Per COMPENSATION INTERN and nursing, tolerated pureed diet/NTL well for breakfast. Denies any pain Objective - Constitutional Vitals: Vital Signs - 12hr 05/18/16 05/18/16 05/18/16 08:00 08:01 08:02 Temperature 96.7 F L Pulse Rate 73 73 Pulse Rate [ 73 Left Brachial] Respiratory 18 Rate Blood Pressure 210/89 210/89 Blood Pressure 210/89 [Left Arm] O2 Sat by Pulse 96 Oximetry 05/18/16 05/18/16 05/18/16 08:15 09:58 10:00 Temperature 99.6 F Pulse Rate Pulse Rate [ 73 82 73 Left Brachial] Respiratory 18 18 Rate Blood Pressure Blood Pressure 180/70 176/68 [Left Arm] O2 Sat by Pulse 98 96 Oximetry 05/18/16 12:52 Temperature 97.7 F Pulse Rate Pulse Rate [ 84 Left Brachial] Respiratory 18 Rate Blood Pressure Blood Pressure 152/61 [Left Arm] O2 Sat by Pulse 98 Oximetry General appearance: Present: no acute distress, other (asleep in bed, however, easily aroused) - EENT Eyes: EOM intact ENT: hearing intact - Neck Neck: supple - Respiratory Respiratory effort: normal Respiratory: bilateral: CTA - Cardiovascular Rhythm: regular Heart Sounds: Present: S1 & S2 - Gastrointestinal General gastrointestinal: Present: soft, non-tender, non-distended, normal bowel sounds - Musculoskeletal Musculoskeletal: right sided weakness - Neurologic Neurologic: other (+facial droop) - Psychiatric Psychiatric: no memory intact (oriented to self, city/state and that she is in the hospital; however, not aware of the name of the hospital) - Allied health notes Allied health notes reviewed: PT (totalA-maxA for transfers; min-maxA for sitting balance) - Labs CBC & Chem 7: 05/14/16 07:27 05/14/16 07:27
[2016-05-18] MEDS: TYLENOL PO PRN (15:24)
[2016-05-18] MEDS: ZOCOR PO SCH (20:35)
--- NOTE | 2016-05-18 20:58 | Progress Note ---
Assessment and Plan - Patient Problems (1) CVA (cerebral vascular accident) Current Visit: Yes Status: Acute Qualifiers: CVA mechanism: C Precerebral and cerebral artery: P Laterality of affected vessel: L Plan to address problem: Stroke protocol: antiplatet therapy, statin, systolic BP goal overnight betwen 165-180, (2) Stage II pressure ulcer of sacral region Current Visit: Yes Status: Acute Plan to address problem: wound care, Q 2 turns, (3) Arterial insufficiency of lower extremity Current Visit: No Status: Acute (4) HTN (hypertension) Current Visit: No Status: Acute Qualifiers: Hypertension type: essential hypertension Qualified Code(s): I10 - Essential (primary) hypertension Plan to address problem: Monitor BP q shift, continue currrent therapy, (5) DVT prophylaxis Current Visit: Yes Status: Acute History Interval history: Pt sitting in chair, Pt has minimal right facial droop. No reported nursing events. Pt alert and responsive. Hospitalist Physical - Constitutional Vitals: Temp Pulse Resp BP Pulse Ox 97.8 F 80 18 190/90 98 05/18/16 18:00 05/18/16 20:35 05/18/16 18:00 05/18/16 20:35 05/18/16 18:00 General appearance: Present: no acute distress, other (asleep in bed, however, easily aroused) - EENT Eyes: Present: PERRL ENT: hearing intact - Neck Neck: Present: supple - Respiratory Respiratory: bilateral: diminished - Cardiovascular Rhythm: regular Heart Sounds: Present: S1 & S2 - Extremities Extremities: no ischemia Peripheral Pulses: within normal limits - Abdominal General gastrointestinal: soft, non-tender, non-distended - Integumentary Integumentary: Present: clear, dry - Psychiatric Psychiatric: cooperative - Neurologic Neurologic: no CNII-XII intact, focal deficits, no moves all extremities, no gait normal Results - Labs CBC & Chem 7: 05/14/16 07:27 05/14/16 07:27 Labs: Laboratory Last Values WBC 7.9 K/mm3 (4.5-11.0) 05/14/16 07:27 RBC 3.80 M/mm3 (3.65-5.03) 05/14/16 07:27 Hgb 8.3 gm/dl (10.1-14.3) L 05/14/16 07:27 Hct 27.1 % (30.3-42.9) L 05/14/16 07:27 MCV 71 fl (79-97) L 05/14/16 07:27 MCH 22 pg (28-32) L 05/14/16 07:27 MCHC 31 % (30-34) 05/14/16 07:27 RDW 22.2 % (13.2-15.2) H 05/14/16 07:27 Plt Count 282 K/mm3 (140-440) 05/14/16 07:27 Lymph % (Auto) 11.4 % (13.4-35.0) L 05/12/16 04:09 [place] % (Auto) 6.9 % (0.0-7.3) 05/12/16 04:09 Eos % (Auto) 3.2 % (0.0-4.3) 05/12/16 04:09 Baso % (Auto) 0.7 % (0.0-1.8) 05/12/16 04:09 Lymph # 1.0 K/mm3 (1.2-5.4) L 05/12/16 04:09 [place] # 0.6 K/mm3 (0.0-0.8) 05/12/16 04:09 Eos # 0.3 K/mm3 (0.0-0.4) 05/12/16 04:09 Baso # 0.1 K/mm3 (0.0-0.1) 05/12/16 04:09 Seg Neutrophils % 77.8 % (40.0-70.0) H 05/12/16 04:09 Seg Neutrophils # 7.0 K/mm3 (1.8-7.7) 05/12/16 04:09 Sodium 141 mmol/L (137-145) 05/14/16 07:27 Potassium 4.0 mmol/L (3.6-5.0) 05/14/16 07:27 Chloride 104.7 mmol/L (98-107) 05/14/16 07:27 Carbon Dioxide 27 mmol/L (22-30) 05/14/16 07:27 Anion Gap 13 mmol/L 05/14/16 07:27 BUN 8 mg/dL (7-17) 05/14/16 07:27 Creatinine 0.4 mg/dL (0.7-1.2) L 05/14/16 07:27 Estimated GFR > 60 ml/min 05/14/16 07:27 BUN/Creatinine Ratio 20.00 % 05/14/16 07:27 Glucose 84 mg/dL (65-100) 05/14/16 07:27 POC Glucose 182 (70-105) H 05/12/16 13:12 Hemoglobin A1c 5.8 % (4-6) 05/12/16 04:09 Calcium 8.1 mg/dL (8.4-10.2) L 05/14/16 07:27 Total Bilirubin 0.2 mg/dL (0.1-1.2) 05/12/16 04:09 AST 14 units/L (5-40) 05/12/16 04:09 ALT 5 units/L (7-56) L 05/12/16 04:09 Alkaline Phosphatase 56 units/L (35-129) 05/12/16 04:09 Total Protein 5.1 g/dL (6.3-8.2) L 05/12/16 04:09 Albumin 2.3 g/dL (3.9-5) L 05/12/16 04:09 Albumin/Globulin Ratio 0.8 % 05/12/16 04:09 Triglycerides 70 mg/dL (2-149) 05/18/16 04:37 Cholesterol 114 mg/dL (50-199) 05/18/16 04:37 LDL Cholesterol Direct 55 mg/dL (50-130) 05/18/16 04:37 HDL Cholesterol 45 mg/dL (40-59) 05/18/16 04:37 Cholesterol/HDL Ratio 2.53 % 05/18/16 04:37
[2016-05-19] MEDS: APRESOLINE IV PRN ×3 (02:12→22:00)
[2016-05-19 05:05] LABS: Hematocrit 27.4 % (30.3-42.9); Hemoglobin 8.3 gm/dl (10.1-14.3); Mean Corpuscular HGB Conc 30 % (30-34); Mean Corpuscular Volume 73 fl (79-97); Platelet Count 305 K/mm3 (140-440); Red Blood Count 3.78 M/mm3 (3.65-5.03); White Blood Count 12.6 K/mm3 (4.5-11.0)
[2016-05-19 05:06] LABS: Mean Corpuscular Hemoglobin 22 pg (28-32)
[2016-05-19 05:09] LABS: Anion Gap 13 mmol/L; Blood Urea Nitrogen 13 mg/dL (7-17); Carbon Dioxide 28 mmol/L (22-30); Chloride 106.6 mmol/L (98-107); Glucose 92 mg/dL (65-100); Potassium 3.6 mmol/L (3.6-5.0); Sodium 144 mmol/L (137-145)
[2016-05-19] MEDS: COZAAR PO SCH (08:55)
[2016-05-19] MEDS: APRESOLINE PO SCH ×2 (08:55→16:04)
[2016-05-19] MEDS: ASPIRIN PO SCH (08:56)
[2016-05-19] MEDS: ZOCOR PO SCH (22:00)
[2016-05-20] MEDS: APRESOLINE PO SCH ×5 (03:41→21:57)
--- NOTE | 2016-05-20 07:30 | Progress Note ---
Assessment and Plan - Patient Problems (1) CVA (cerebral vascular accident) Current Visit: Yes Status: Acute Qualifiers: CVA mechanism: C Precerebral and cerebral artery: P Laterality of affected vessel: L Plan to address problem: Stroke protocol: antiplatet therapy, statin, systolic BP goal overnight betwen 165-180, (2) Stage II pressure ulcer of sacral region Current Visit: Yes Status: Acute Plan to address problem: wound care, Q 2 turns, (3) Arterial insufficiency of lower extremity Current Visit: No Status: Acute (4) HTN (hypertension) Current Visit: No Status: Acute Qualifiers: Hypertension type: essential hypertension Qualified Code(s): I10 - Essential (primary) hypertension Plan to address problem: Uncontrolled: Monitor BP q shift, continue currrent therapy, Increase IV hydralazine dosing, and BP checks Q 4 hrs with IV hydralazine dosing for BP above 160. (5) DVT prophylaxis Current Visit: Yes Status: Acute History Interval history: Pt sitting in chair, Pt has minimal right facial droop. No reported nursing events. Pt alert and responsive. Pt blood pressure uncontrolled. discussed dosing with nurse. Hospitalist Physical - Constitutional Vitals: Temp Pulse Resp BP Pulse Ox 100.7 F H 92 H 18 200/70 97 05/19/16 20:00 05/20/16 03:41 05/19/16 20:00 05/20/16 03:41 05/19/16 20:00 General appearance: Present: no acute distress, other (asleep in bed, however, easily aroused) - EENT Eyes: Present: PERRL ENT: hearing intact - Neck Neck: Present: supple - Respiratory Respiratory: bilateral: diminished - Cardiovascular Rhythm: regular Peripheral Pulses: within normal limits - Abdominal General gastrointestinal: soft, non-tender, non-distended, no hepatomegaly, no splenomegaly - Integumentary Integumentary: Present: clear, dry - Psychiatric Psychiatric: cooperative - Neurologic Neurologic: focal deficits, no gait normal Results - Labs CBC & Chem 7: 05/19/16 04:18 05/19/16 04:18 Labs: Laboratory Last Values WBC 12.6 K/mm3 (4.5-11.0) H 05/19/16 04:18 RBC 3.78 M/mm3 (3.65-5.03) 05/19/16 04:18 Hgb 8.3 gm/dl (10.1-14.3) L 05/19/16 04:18 Hct 27.4 % (30.3-42.9) L 05/19/16 04:18 MCV 73 fl (79-97) L 05/19/16 04:18 MCH 22 pg (28-32) L 05/19/16 04:18 MCHC 30 % (30-34) 05/19/16 04:18 RDW 24.0 % (13.2-15.2) H 05/19/16 04:18 Plt Count 305 K/mm3 (140-440) 05/19/16 04:18 Lymph % (Auto) 11.4 % (13.4-35.0) L 05/12/16 04:09 [place] % (Auto) 6.9 % (0.0-7.3) 05/12/16 04:09 Eos % (Auto) 3.2 % (0.0-4.3) 05/12/16 04:09 Baso % (Auto) 0.7 % (0.0-1.8) 05/12/16 04:09 Lymph # 1.0 K/mm3 (1.2-5.4) L 05/12/16 04:09 [place] # 0.6 K/mm3 (0.0-0.8) 05/12/16 04:09 Eos # 0.3 K/mm3 (0.0-0.4) 05/12/16 04:09 Baso # 0.1 K/mm3 (0.0-0.1) 05/12/16 04:09 Seg Neutrophils % 77.8 % (40.0-70.0) H 05/12/16 04:09 Seg Neutrophils # 7.0 K/mm3 (1.8-7.7) 05/12/16 04:09 Sodium 144 mmol/L (137-145) 05/19/16 04:18 Potassium 3.6 mmol/L (3.6-5.0) 05/19/16 04:18 Chloride 106.6 mmol/L (98-107) 05/19/16 04:18 Carbon Dioxide 28 mmol/L (22-30) 05/19/16 04:18 Anion Gap 13 mmol/L 05/19/16 04:18 BUN 13 mg/dL (7-17) 05/19/16 04:18 Creatinine 0.4 mg/dL (0.7-1.2) L 05/19/16 04:18 Estimated GFR > 60 ml/min 05/19/16 04:18 BUN/Creatinine Ratio 32.50 % 05/19/16 04:18 Glucose 92 mg/dL (65-100) 05/19/16 04:18 POC Glucose 182 (70-105) H 05/12/16 13:12 Hemoglobin A1c 5.8 % (4-6) 05/12/16 04:09 Calcium 8.0 mg/dL (8.4-10.2) L 05/19/16 04:18 Total Bilirubin 0.2 mg/dL (0.1-1.2) 05/12/16 04:09 AST 14 units/L (5-40) 05/12/16 04:09 ALT 5 units/L (7-56) L 05/12/16 04:09 Alkaline Phosphatase 56 units/L (35-129) 05/12/16 04:09 Total Protein 5.1 g/dL (6.3-8.2) L 05/12/16 04:09 Albumin 2.3 g/dL (3.9-5) L 05/12/16 04:09 Albumin/Globulin Ratio 0.8 % 05/12/16 04:09 Triglycerides 70 mg/dL (2-149) 05/18/16 04:37 Cholesterol 114 mg/dL (50-199) 05/18/16 04:37 LDL Cholesterol Direct 55 mg/dL (50-130) 05/18/16 04:37 HDL Cholesterol 45 mg/dL (40-59) 05/18/16 04:37 Cholesterol/HDL Ratio 2.53 % 05/18/16 04:37
[2016-05-20] MEDS: APRESOLINE IV PRN ×3 (08:04→16:30)
[2016-05-20] MEDS: ASPIRIN PO SCH (08:08)
[2016-05-20] MEDS: COZAAR PO SCH (08:08)
[2016-05-20 16:50] LABS: Bilirubin,Urine NEG (Negative); Blood,Urine NEG (Negative); Ketones,Urine NEG (Negative); Leukocyte Esterase,Urine TR (Negative); Mucus,Urine FEW /HPF; Nitrite,Urine NEG (Negative); Protein,Urine <15 mg/dL mg/dL (Negative)
[2016-05-20] MEDS: ZOCOR PO SCH (21:57)
[2016-05-21] MEDS: APRESOLINE IV PRN ×3 (04:36→17:59)
[2016-05-21 04:51] LABS: Hematocrit 28.1 % (30.3-42.9); Hemoglobin 8.5 gm/dl (10.1-14.3); Mean Corpuscular HGB Conc 30 % (30-34); Mean Corpuscular Volume 72 fl (79-97); Platelet Count 308 K/mm3 (140-440); Red Blood Count 3.91 M/mm3 (3.65-5.03); White Blood Count 12.6 K/mm3 (4.5-11.0)
[2016-05-21 04:56] LABS: Mean Corpuscular Hemoglobin 22 pg (28-32)
[2016-05-21 04:57] LABS: Red Cell Distribution Width 23.5 % (13.2-15.2)
[2016-05-21] MEDS: APRESOLINE PO SCH ×3 (06:39→21:00)
[2016-05-21] MEDS: COZAAR PO SCH (08:21)
[2016-05-21] MEDS: ASPIRIN PO SCH (08:22)
--- NOTE | 2016-05-21 13:01 | Progress Note ---
Assessment and Plan 85 y.o. 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 - HTN- noted adjustment to hydralazine; IM managing - toileting schedule for bladder incontinence - stage 2 sacral pressure ulcer- hydrocolloid to area, changed every 3-4 days - Patient Problems (1) Above knee amputation of left lower extremity Current Visit: Yes Status: Acute (2) HTN (hypertension) Current Visit: No Status: Acute Qualifiers: Hypertension type: essential hypertension Qualified Code(s): I10 - Essential (primary) hypertension (3) Bladder incontinence Current Visit: Yes Status: Acute Qualifiers: Urinary Incontinence type: urinary incontinence without sensory awareness Qualified Code(s): N39.42 - Incontinence without sensory awareness (4) Stage II pressure ulcer of sacral region Current Visit: Yes Status: Acute (5) Acute right hemiparesis Current Visit: Yes Status: Acute (6) Dysphagia as late effect of cerebrovascular accident (CVA) Current Visit: Yes Status: Acute (7) CVA (cerebral vascular accident) Current Visit: Yes Status: Acute Qualifiers: CVA mechanism: C Precerebral and cerebral artery: P Laterality of affected vessel: L Subjective Date of service: 05/21/16 Principal diagnosis: CVA, left AKA Interval history: Pt seen in dining room this AM, F/U IRU course, s/p Left AKA. Intermittent pain at left residual limb; no pain reported at time of exam; denies any coughing with meals Objective - Constitutional Vitals: Vital Signs - 12hr 05/21/16 05/21/16 05/21/16 04:00 04:36 06:39 Temperature Pulse Rate 74 84 Pulse Rate [ 74 Left Brachial] Respiratory Rate Blood Pressure 190/74 180/60 Blood Pressure 190/74 [Left Arm] O2 Sat by Pulse Oximetry 05/21/16 05/21/16 05/21/16 07:30 08:21 08:22 Temperature 98.9 F Pulse Rate 92 H 92 H Pulse Rate [ 92 H Left Brachial] Respiratory 20 Rate Blood Pressure 183/70 183/70 Blood Pressure 183/70 [Left Arm] O2 Sat by Pulse 98 Oximetry 05/21/16 10:00 Temperature Pulse Rate Pulse Rate [ 88 Left Brachial] Respiratory Rate Blood Pressure Blood Pressure 164/68 [Left Arm] O2 Sat by Pulse Oximetry General appearance: Present: no acute distress - EENT Eyes: EOM intact ENT: hearing intact - Neck Neck: supple - Respiratory Respiratory effort: normal Respiratory: bilateral: CTA - Cardiovascular Rhythm: regular Heart Sounds: Present: S1 & S2 Extremity abnormal: edema (right hand) - Gastrointestinal General gastrointestinal: Present: soft, non-tender, non-distended, normal bowel sounds - Integumentary Integumentary: clear - Musculoskeletal Musculoskeletal: right sided weakness - Neurologic Neurologic: other (stable facial droop) - Psychiatric Psychiatric: cooperative (follows simple commands) - Allied health notes Allied health notes reviewed: PT (totalA for transfers; maxA for WC mobility), OT (min-totalA for ADLs) - Labs CBC & Chem 7: 05/21/16 04:08 05/19/16 04:18 Labs: Abnormal lab results 05/21/16 Range/Units 04:08 WBC 12.6 H (4.5-11.0) K/mm3 Hgb 8.5 L (10.1-14.3) gm/dl Hct 28.1 L (30.3-42.9) % MCV 72 L (79-97) fl MCH 22 L (28-32) pg RDW 23.5 H (13.2-15.2) %
[2016-05-21] MEDS ORDERED: APRESOLINE PO SCH ×2 (16:56→17:00)
--- NOTE | 2016-05-21 17:06 | Progress Note ---
Assessment and Plan - Patient Problems (1) CVA (cerebral vascular accident) Current Visit: Yes Status: Acute Qualifiers: CVA mechanism: C Precerebral and cerebral artery: P Laterality of affected vessel: L Plan to address problem: Stroke protocol: antiplatet therapy, statin, systolic BP goal overnight betwen 165-180, (2) Stage II pressure ulcer of sacral region Current Visit: Yes Status: Acute Plan to address problem: wound care, Q 2 turns, (3) Arterial insufficiency of lower extremity Current Visit: No Status: Acute Plan to address problem: Supportive care. (4) HTN (hypertension) Current Visit: No Status: Acute Qualifiers: Hypertension type: essential hypertension Qualified Code(s): I10 - Essential (primary) hypertension Plan to address problem: Uncontrolled: Monitor BP q shift, continue currrent therapy, Increase IV hydralazine dosing, and BP checks Q 4 hrs with IV hydralazine dosing for BP above 160. (5) DVT prophylaxis Current Visit: Yes Status: Acute History Interval history: Pt sitting in chair, Pt has minimal right facial droop. No reported nursing events. Pt alert and responsive. Pt blood pressure uncontrolled. discussed dosing with nurse. Hospitalist Physical - Constitutional Vitals: Temp Pulse Resp BP Pulse Ox 98.9 F 97 H 20 165/70 98 05/21/16 07:30 05/21/16 14:53 05/21/16 07:30 05/21/16 14:53 05/21/16 07:30 General appearance: Present: no acute distress - EENT Eyes: Present: PERRL ENT: hearing intact - Neck Neck: Present: supple - Respiratory Respiratory: bilateral: diminished - Cardiovascular Rhythm: regular Heart Sounds: Present: S1 & S2 Peripheral Pulses: within normal limits - Abdominal General gastrointestinal: soft, non-distended - Integumentary Integumentary: Present: clear, dry - Psychiatric Psychiatric: appropriate mood/affect, cooperative - Neurologic Neurologic: focal deficits, no moves all extremities, no gait normal Results - Labs CBC & Chem 7: 05/21/16 04:08 05/19/16 04:18 Labs: Laboratory Last Values WBC 12.6 K/mm3 (4.5-11.0) H 05/21/16 04:08 RBC 3.91 M/mm3 (3.65-5.03) 05/21/16 04:08 Hgb 8.5 gm/dl (10.1-14.3) L 05/21/16 04:08 Hct 28.1 % (30.3-42.9) L 05/21/16 04:08 MCV 72 fl (79-97) L 05/21/16 04:08 MCH 22 pg (28-32) L 05/21/16 04:08 MCHC 30 % (30-34) 05/21/16 04:08 RDW 23.5 % (13.2-15.2) H 05/21/16 04:08 Plt Count 308 K/mm3 (140-440) 05/21/16 04:08 Lymph % (Auto) 11.4 % (13.4-35.0) L 05/12/16 04:09 [place] % (Auto) 6.9 % (0.0-7.3) 05/12/16 04:09 Eos % (Auto) 3.2 % (0.0-4.3) 05/12/16 04:09 Baso % (Auto) 0.7 % (0.0-1.8) 05/12/16 04:09 Lymph # 1.0 K/mm3 (1.2-5.4) L 05/12/16 04:09 [place] # 0.6 K/mm3 (0.0-0.8) 05/12/16 04:09 Eos # 0.3 K/mm3 (0.0-0.4) 05/12/16 04:09 Baso # 0.1 K/mm3 (0.0-0.1) 05/12/16 04:09 Seg Neutrophils % 77.8 % (40.0-70.0) H 05/12/16 04:09 Seg Neutrophils # 7.0 K/mm3 (1.8-7.7) 05/12/16 04:09 Sodium 144 mmol/L (137-145) 05/19/16 04:18 Potassium 3.6 mmol/L (3.6-5.0) 05/19/16 04:18 Chloride 106.6 mmol/L (98-107) 05/19/16 04:18 Carbon Dioxide 28 mmol/L (22-30) 05/19/16 04:18 Anion Gap 13 mmol/L 05/19/16 04:18 BUN 13 mg/dL (7-17) 05/19/16 04:18 Creatinine 0.4 mg/dL (0.7-1.2) L 05/19/16 04:18 Estimated GFR > 60 ml/min 05/19/16 04:18 BUN/Creatinine Ratio 32.50 % 05/19/16 04:18 Glucose 92 mg/dL (65-100) 05/19/16 04:18 POC Glucose 182 (70-105) H 05/12/16 13:12 Hemoglobin A1c 5.8 % (4-6) 05/12/16 04:09 Calcium 8.0 mg/dL (8.4-10.2) L 05/19/16 04:18 Total Bilirubin 0.2 mg/dL (0.1-1.2) 05/12/16 04:09 AST 14 units/L (5-40) 05/12/16 04:09 ALT 5 units/L (7-56) L 05/12/16 04:09 Alkaline Phosphatase 56 units/L (35-129) 05/12/16 04:09 Total Protein 5.1 g/dL (6.3-8.2) L 05/12/16 04:09 Albumin 2.3 g/dL (3.9-5) L 05/12/16 04:09 Albumin/Globulin Ratio 0.8 % 05/12/16 04:09 Triglycerides 70 mg/dL (2-149) 05/18/16 04:37 Cholesterol 114 mg/dL (50-199) 05/18/16 04:37 LDL Cholesterol Direct 55 mg/dL (50-130) 05/18/16 04:37 HDL Cholesterol 45 mg/dL (40-59) 05/18/16 04:37 Cholesterol/HDL Ratio 2.53 % 05/18/16 04:37 Urine Color Yellow (Yellow) 05/20/16 16:14 Urine Turbidity Clear (Clear) 05/20/16 16:14 Urine pH 7.0 (5.0-7.0) 05/20/16 16:14 Ur Specific [place] 1.015 (1.003-1.030) 05/20/16 16:14 Urine Protein <15 mg/dl mg/dL (Negative) 05/20/16 16:14 Urine Glucose (UA) Neg mg/dL (Negative) 05/20/16 16:14 Urine Ketones Neg mg/dL (Negative) 05/20/16 16:14 Urine Blood Neg (Negative) 05/20/16 16:14 Urine Nitrite Neg (Negative) 05/20/16 16:14 Urine Bilirubin Neg (Negative) 05/20/16 16:14 Urine Urobilinogen 2.0 mg/dL (<2.0) 05/20/16 16:14 Ur Leukocyte Esterase Tr (Negative) 05/20/16 16:14 Urine WBC (Auto) 1.0 /HPF (0.0-6.0) 05/20/16 16:14 Urine RBC (Auto) 2.0 /HPF (0.0-6.0) 05/20/16 16:14 U Epithel Cells (Auto) 1.0 /HPF (0-13.0) 05/20/16 16:14 Urine Mucus Few /HPF 05/20/16 16:14
[2016-05-21] MEDS: ZOCOR PO SCH (21:28)
[2016-05-22] MEDS: COZAAR PO SCH (08:34)
[2016-05-22] MEDS: ASPIRIN PO SCH (08:34)
[2016-05-22] MEDS: APRESOLINE PO SCH ×3 (08:34→19:48)
--- NOTE | 2016-05-22 11:51 | XRay Report ---
ROUTINE CHEST, TWO VIEWS: HISTORY: Aspiration, pneumonia. Small pleural effusions are identified on the lateral image. There is no obvious infiltrate or pneumothorax. Heart and mediastinal structures are unremarkable. IMPRESSION: Small bilateral pleural effusions.
--- NOTE | 2016-05-22 16:25 | Progress Note ---
Assessment and Plan 85 y.o. 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 - HTN- hydralazine again adjusted on yesterday; IM managing - toileting schedule for bladder incontinence - progressed to stage 3 sacral pressure ulcer- wound care nurse F/U on today; progression due to patient's inability to provide any weight shifting independently since suffering CVA; continue turning schedule while awake, in WC and in bed - disposition- pt to be transitioned to SNF due to ongoing needs and slow progression; improved alertness and participation with OT noted on today - Patient Problems (1) Above knee amputation of left lower extremity Current Visit: Yes Status: Acute (2) HTN (hypertension) Current Visit: No Status: Acute Qualifiers: Hypertension type: essential hypertension Qualified Code(s): I10 - Essential (primary) hypertension (3) Bladder incontinence Current Visit: Yes Status: Acute Qualifiers: Urinary Incontinence type: urinary incontinence without sensory awareness Qualified Code(s): N39.42 - Incontinence without sensory awareness (4) Acute right hemiparesis Current Visit: Yes Status: Acute (5) Dysphagia as late effect of cerebrovascular accident (CVA) Current Visit: Yes Status: Acute (6) CVA (cerebral vascular accident) Current Visit: Yes Status: Acute Qualifiers: CVA mechanism: C Precerebral and cerebral artery: P Laterality of affected vessel: L (7) Stage III pressure ulcer of sacral region Current Visit: Yes Status: Acute Subjective Date of service: 05/22/16 Principal diagnosis: CVA, left AKA Interval history: Pt seen in room this afternoon, F/U IRU course, s/p Left AKA. No new complaints ; pt (and staff) educated on need for weight shifting; case discussed with wound care nurse Objective - Constitutional Vitals: Vital Signs - 12hr 05/22/16 05/22/16 05/22/16 07:30 08:34 12:00 Temperature 98.2 F Pulse Rate 72 Pulse Rate [ 72 Left Brachial] Pulse Rate [ 74 Left Radial] Respiratory 20 20 Rate Blood Pressure 190/80 Blood Pressure 190/80 170/67 [Left Arm] O2 Sat by Pulse 98 Oximetry 05/22/16 14:15 Temperature Pulse Rate Pulse Rate [ 88 Left Brachial] Pulse Rate [ Left Radial] Respiratory 20 Rate Blood Pressure Blood Pressure 145/61 [Left Arm] O2 Sat by Pulse Oximetry General appearance: Present: no acute distress - EENT Eyes: EOM intact ENT: hearing intact - Neck Neck: supple, normal ROM - Respiratory Respiratory effort: normal Extremities: No edema Extremity abnormal: other (natalia in place; no active drainage) - Gastrointestinal General gastrointestinal: Present: soft, non-tender, non-distended, normal bowel sounds - Musculoskeletal Musculoskeletal: right sided weakness - Neurologic Neurologic: other (unchanged facial droop) - Psychiatric Psychiatric: cooperative (flat affect) - Allied health notes Allied health notes reviewed: PT (maxA for transfers and wheelchair mobility; poor sitting balance), OT (s/u for grooming; maxA for sliding board transfers; noted to be more alert and required less assistance on today) - Labs CBC & Chem 7: 05/21/16 04:08 05/19/16 04:18
[2016-05-22] MEDS: TYLENOL PO PRN (19:48)
[2016-05-22] MEDS: ZOCOR PO SCH (20:09)
[2016-05-23] MEDS: COZAAR PO SCH (08:41)
[2016-05-23] MEDS: ASPIRIN PO SCH (08:41)
[2016-05-23] MEDS: APRESOLINE PO SCH ×3 (08:42→21:12)
--- NOTE | 2016-05-23 16:37 | Progress Note ---
Assessment and Plan 85 y.o. 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; acute/subacute CVA noted on repeat CT Brain on 05/17 after pt remained with lethargy (initial CT Brain on was negative) - s/p left AKA- maintain natalia; healing well - acute/subacute left occipital CVA- right hemiparesis, right side neglect; ASA , statin - dysphagia- continue pureed diet with nectar thickened liquids - HTN- remains uncontrolled; discussed with IM on today - toileting schedule for bladder incontinence - progressed to stage 3 sacral pressure ulcer- wound care nurse F/U on today; progression due to patient's inability to provide any weight shifting independently since suffering CVA; continue turning schedule while awake, in WC and in bed - disposition- remains maxA for transfers; limited participation this AM with therapies, improved alertness during afternoon session. Update provided to pt' s grandson via phone concerning limited progress and recommendation for SNF placement. Also discussed CODE status with both pt and grandson; pt is now made DNR. Pt to be transitioned to SNF when facility chosen and bed made available. - Patient Problems (1) Above knee amputation of left lower extremity Current Visit: Yes Status: Acute (2) HTN (hypertension) Current Visit: No Status: Acute Qualifiers: Hypertension type: essential hypertension Qualified Code(s): I10 - Essential (primary) hypertension (3) Bladder incontinence Current Visit: Yes Status: Acute Qualifiers: Urinary Incontinence type: urinary incontinence without sensory awareness Qualified Code(s): N39.42 - Incontinence without sensory awareness (4) Acute right hemiparesis Current Visit: Yes Status: Acute (5) Dysphagia as late effect of cerebrovascular accident (CVA) Current Visit: Yes Status: Acute (6) CVA (cerebral vascular accident) Current Visit: Yes Status: Acute Qualifiers: CVA mechanism: C Precerebral and cerebral artery: P Laterality of affected vessel: L (7) Stage III pressure ulcer of sacral region Current Visit: Yes Status: Acute Subjective Date of service: 05/23/16 Principal diagnosis: CVA, left AKA Interval history: Pt seen in dining room this AM, F/U IRU course, s/p Left AKA. Pt reports being tired on today; needed increased encouragement to participate with AM therapies ; denied any pain or headache, just fatigue Objective - Constitutional Vitals: Vital Signs - 12hr 05/23/16 05/23/16 05/23/16 07:00 08:41 15:10 Temperature 98.1 F 97.9 F Pulse Rate 86 Pulse Rate [ 86 75 Left Brachial] Respiratory 18 20 Rate Blood Pressure 170/69 Blood Pressure 170/69 180/76 [Left Arm] O2 Sat by Pulse 96 95 Oximetry General appearance: Present: no acute distress - EENT Eyes: EOM intact ENT: hearing intact - Neck Neck: supple - Respiratory Respiratory effort: normal Respiratory: bilateral: CTA - Cardiovascular Rhythm: regular Heart Sounds: Present: S1 & S2 Extremities: No edema - Gastrointestinal General gastrointestinal: Present: soft, non-tender, non-distended, normal bowel sounds - Musculoskeletal Musculoskeletal: right sided weakness - Psychiatric Psychiatric: cooperative (following simple commands) - Allied health notes Allied health notes reviewed: PT, OT - Labs CBC & Chem 7: 05/21/16 04:08 05/19/16 04:18
--- NOTE | 2016-05-23 18:03 | Progress Note ---
Assessment and Plan - Patient Problems (1) Above knee amputation of left lower extremity Current Visit: Yes Status: Acute Plan to address problem: The wound is healing well. (2) Acute blood loss anemia Current Visit: Yes Status: Acute Plan to address problem: Stable (3) Acute right hemiparesis Current Visit: Yes Status: Acute Plan to address problem: Physical therapy, supportive care (4) Bladder incontinence Current Visit: Yes Status: Acute Qualifiers: Urinary Incontinence type: urinary incontinence without sensory awareness Qualified Code(s): N39.42 - Incontinence without sensory awareness (5) CVA (cerebral vascular accident) Current Visit: Yes Status: Acute Qualifiers: CVA mechanism: C Precerebral and cerebral artery: P Laterality of affected vessel: L Plan to address problem: On aspirin and statin (6) DVT prophylaxis Current Visit: Yes Status: Acute (7) Dysphagia as late effect of cerebrovascular accident (CVA) Current Visit: Yes Status: Acute (8) Hemiparesis affecting right side as late effect of cerebrovascular accident Current Visit: Yes Status: Acute (9) HTN (hypertension) Current Visit: No Status: Acute Qualifiers: Hypertension type: essential hypertension Qualified Code(s): I10 - Essential (primary) hypertension Plan to address problem: Patient is on when necessary hydralazine, blood pressure is going up and down. History Interval history: Patient was seen and evaluated, no new complaints, no fever or chills. Hospitalist Physical - Physical exam Narrative exam: Not in cardiopulmonary distress. The patient is friable. Vital signs as documented. Head exam is unremarkable. No scleral icterus . Neck is without jugular venous distension, thyromegaly, or carotid bruits. Lungs are clear to auscultation. Cardiac exam reveals regular rate and Rhythm. First and second heart sounds normal. No murmurs, rubs or gallops. Abdominal exam reveals normal bowel sounds, no masses, no organomegaly and no aortic enlargement. Extremities left AKA [employer]: Right-sided hemiparesis - Constitutional Vitals: Temp Pulse Resp BP Pulse Ox 97.9 F 75 20 180/76 95 05/23/16 15:10 05/23/16 15:10 05/23/16 15:10 05/23/16 15:10 05/23/16 15:10 General appearance: Present: no acute distress Results - Labs CBC & Chem 7: 05/21/16 04:08 05/19/16 04:18 Labs: Laboratory Last Values WBC 12.6 K/mm3 (4.5-11.0) H 05/21/16 04:08 RBC 3.91 M/mm3 (3.65-5.03) 05/21/16 04:08 Hgb 8.5 gm/dl (10.1-14.3) L 05/21/16 04:08 Hct 28.1 % (30.3-42.9) L 05/21/16 04:08 MCV 72 fl (79-97) L 05/21/16 04:08 MCH 22 pg (28-32) L 05/21/16 04:08 MCHC 30 % (30-34) 05/21/16 04:08 RDW 23.5 % (13.2-15.2) H 05/21/16 04:08 Plt Count 308 K/mm3 (140-440) 05/21/16 04:08 Lymph % (Auto) 11.4 % (13.4-35.0) L 05/12/16 04:09 Kendall % (Auto) 6.9 % (0.0-7.3) 05/12/16 04:09 Eos % (Auto) 3.2 % (0.0-4.3) 05/12/16 04:09 Baso % (Auto) 0.7 % (0.0-1.8) 05/12/16 04:09 Lymph # 1.0 K/mm3 (1.2-5.4) L 05/12/16 04:09 Kendall # 0.6 K/mm3 (0.0-0.8) 05/12/16 04:09 Eos # 0.3 K/mm3 (0.0-0.4) 05/12/16 04:09 Baso # 0.1 K/mm3 (0.0-0.1) 05/12/16 04:09 Seg Neutrophils % 77.8 % (40.0-70.0) H 05/12/16 04:09 Seg Neutrophils # 7.0 K/mm3 (1.8-7.7) 05/12/16 04:09 Sodium 144 mmol/L (137-145) 05/19/16 04:18 Potassium 3.6 mmol/L (3.6-5.0) 05/19/16 04:18 Chloride 106.6 mmol/L (98-107) 05/19/16 04:18 Carbon Dioxide 28 mmol/L (22-30) 05/19/16 04:18 Anion Gap 13 mmol/L 05/19/16 04:18 BUN 13 mg/dL (7-17) 05/19/16 04:18 Creatinine 0.4 mg/dL (0.7-1.2) L 05/19/16 04:18 Estimated GFR > 60 ml/min 05/19/16 04:18 BUN/Creatinine Ratio 32.50 % 05/19/16 04:18 Glucose 92 mg/dL (65-100) 05/19/16 04:18 POC Glucose 182 (70-105) H 05/12/16 13:12 Hemoglobin A1c 5.8 % (4-6) 05/12/16 04:09 Calcium 8.0 mg/dL (8.4-10.2) L 05/19/16 04:18 Total Bilirubin 0.2 mg/dL (0.1-1.2) 05/12/16 04:09 AST 14 units/L (5-40) 05/12/16 04:09 ALT 5 units/L (7-56) L 05/12/16 04:09 Alkaline Phosphatase 56 units/L (35-129) 05/12/16 04:09 Total Protein 5.1 g/dL (6.3-8.2) L 05/12/16 04:09 Albumin 2.3 g/dL (3.9-5) L 05/12/16 04:09 Albumin/Globulin Ratio 0.8 % 05/12/16 04:09 Triglycerides 70 mg/dL (2-149) 05/18/16 04:37 Cholesterol 114 mg/dL (50-199) 05/18/16 04:37 LDL Cholesterol Direct 55 mg/dL (50-130) 05/18/16 04:37 HDL Cholesterol 45 mg/dL (40-59) 05/18/16 04:37 Cholesterol/HDL Ratio 2.53 % 05/18/16 04:37 Urine Color Yellow (Yellow) 05/20/16 16:14 Urine Turbidity Clear (Clear) 05/20/16 16:14 Urine pH 7.0 (5.0-7.0) 05/20/16 16:14 Ur Specific [place] 1.015 (1.003-1.030) 05/20/16 16:14 Urine Protein <15 mg/dl mg/dL (Negative) 05/20/16 16:14 Urine Glucose (UA) Neg mg/dL (Negative) 05/20/16 16:14 Urine Ketones Neg mg/dL (Negative) 05/20/16 16:14 Urine Blood Neg (Negative) 05/20/16 16:14 Urine Nitrite Neg (Negative) 05/20/16 16:14 Urine Bilirubin Neg (Negative) 05/20/16 16:14 Urine Urobilinogen 2.0 mg/dL (<2.0) 05/20/16 16:14 Ur Leukocyte Esterase Tr (Negative) 05/20/16 16:14 Urine WBC (Auto) 1.0 /HPF (0.0-6.0) 05/20/16 16:14 Urine RBC (Auto) 2.0 /HPF (0.0-6.0) 05/20/16 16:14 U Epithel Cells (Auto) 1.0 /HPF (0-13.0) 05/20/16 16:14 Urine Mucus Few /HPF 05/20/16 16:14
[2016-05-23] MEDS: ZOCOR PO SCH (21:12)
[2016-05-24] MEDS: COZAAR PO SCH (08:41)
[2016-05-24] MEDS: ASPIRIN PO SCH (08:41)
[2016-05-24] MEDS: APRESOLINE PO SCH ×2 (08:43→14:36)
--- NOTE | 2016-05-24 14:57 | Discharge Summary ---
Providers - Providers Date of Admission: 05/11/16 15:20 Date of discharge: 05/24/16 Attending physician: GARRY ESTRADA 05/11/16 16:46 Consult to Wound/ET Nurse [CONS] Routine Reason For Exam: wound eval; stage 2 sacral ulcer Occupational Therapy Evaluate and Treat [CONS] Routine Comment: Reason For Exam: left AKA Physical Therapy Evaluation and Treat [CONS] Routine Comment: Reason For Exam: left AKA 05/13/16 21:48 Consult to Physician [CONS] Routine Consulting Provider: NURY ZULETA [facility] Reason For Exam: HTN Place consult to:: DR SARAH Notified:: YES Phone number called:: [phone] Was contact made?: Yes If yes, spoke with:: DR SARAH Time called:: 08:10 Comment:: WILL SEE PATIENT. 05/17/16 10:32 Speech Therapy Evaluation and Treat [CONS] Routine Reason For Exam: cognitive and swallowing eval 05/17/16 16:33 Occupational Therapy Evaluate and Treat [CONS] Routine Comment: Reason For Exam: Neuro deficits Physical Therapy Evaluation and Treat [CONS] Routine Comment: Reason For Exam: Neuro deficits Primary care physician: CHIEF NURSE Hospitalization Reason for admission: Left CVA, Left AKA Condition: Stable Hospital course: 85 y.o. female admitted to [facility] with non-healing LLE ulcer with foul odor. Pt was evaluated by Vascular surgery and recommended for left AKA secondary to extent of gangrene. Post-op course significant for uncontrolled blood pressure , ranging from 155-225/60-94. Pt was not previously on any anti-hypertensives and had not followed by a physician in many years. Leukocytosis has improved with IV ABX, WBC 23.1 at max. Once stable, pt was admitted to IRU for aggressive therapies and ongoing medical management. IRU course significant for ongoing uncontrolled HTN; IM consulted for medication changes; will need ongoing close management as this remains intermittent uncontrolled. Pt initially thought to be lethagic due to BP meds, however, continued despite changes. CT Brain (05/12) obtained early in course noted to be negative for acute CVA; however, due to ongoing lethargy was repeated (05/17) and showed an acute/subacute left CVA. On same day of repeat CT, pt was noted to have increased drooling and coughing on thin liquids; MBS was completed and diet was downgraded to pureed with nectar thickened liquids. Pt has tolerated diet well. Pt was followed by wound care due to stage 2 sacral pressure ulcer noted on admission; this has progressed to a stage 3 despite turning. Pt has made minimal progress with therapies. Team conference was held on today. Pt requires Terry for eating and grooming; maxA for bathing, UB dressing, transfers and wheelchair mobility; totalA for LB dressing, toileting and toilet transfers ; Terry for problem solving and memory. At this time, pt is recommended for discharge to SNF ([facility]) for ongoing care as pt is not safe to return home with grandson. Disposition: DC/TX SNF W [facility] CERT - Discharge Diagnoses (1) Above knee amputation of left lower extremity Status: Acute (2) HTN (hypertension) Status: Acute Qualifiers: Hypertension type: essential hypertension Qualified Code(s): I10 - Essential (primary) hypertension (3) Bladder incontinence Status: Acute Qualifiers: Urinary Incontinence type: urinary incontinence without sensory awareness Qualified Code(s): N39.42 - Incontinence without sensory awareness (4) Acute right hemiparesis Status: Acute (5) Dysphagia as late effect of cerebrovascular accident (CVA) Status: Acute (6) CVA (cerebral vascular accident) Status: Acute Qualifiers: CVA mechanism: C Precerebral and cerebral artery: P Laterality of affected vessel: L (7) Stage III pressure ulcer of sacral region Status: Acute Core Measure Documentation - Palliative Care Palliative Care/ Comfort Measures: Not Applicable - Core Measures Any of the following diagnoses?: stroke - Stroke Discharge Requirements Statin for LDL = or >70 mg/dl on DC: Yes Anticoag for atrial fib/atrial flutter: Not Applicable Antithrombotic for ischemic stroke: Yes Exam - Constitutional Vitals: Temp Pulse Resp BP Pulse Ox 98 F 72 18 205/92 95 05/24/16 08:00 05/24/16 08:41 05/24/16 08:00 05/24/16 08:41 05/24/16 08:00 General appearance: Present: no acute distress - EENT Eyes: Present: EOM intact ENT: hearing intact - Neck Neck: Present: supple - Respiratory Respiratory effort: normal - Extremities Extremities: No edema Extremity abnormal: other (natalia to left residual limb) - Abdominal General gastrointestinal: Present: soft, non-tender, non-distended - Musculoskeletal Musculoskeletal: right sided weakness - Psychiatric Psychiatric: cooperative (appropriate in conversation) - Neurologic Neurologic: other (stable facial droop) Plan Activity: no driving until cleared by PCP, fall precautions Weight Bearing Status: Weight Bear as Tolerated Diet: thickened liquids (nectar), other (pureed diet) Wound: keep clean and dry (maintain natalia at left residual limb until seen by Vascular Surgery), per wound nurse instructions (for sacral wound) Special Instructions: physical therapy, occupational therapy, other ([employer]AMER) Follow up with: PRIMARY CAREMD [Primary Care Provider] - 7 Days LEONARDO ZABALA MD [Staff Physician] - 14 Days Prescriptions: Simvastatin [Zocor TAB] 20 mg PO QHS #1 tablet
[2016-05-24 17:31] VITALS: BP 149/53
== END 2016-05-24 17:45 | DRG 299 ==
LOC: 3B 15:20
PROVIDERS: ADMIT Family Medicine; ATTEND Family Medicine
DX: I96 Gangrene, not elsewhere classified (principal); I63.9 Cerebral infarction, unspecified; D62 Acute posthemorrhagic anemia; L97.829 Non-pressure chronic ulcer of other part of left lower leg with unspecified severity; G81.91 Hemiplegia, unspecified affecting right dominant side; L89.153 Pressure ulcer of sacral region, stage 3; I10 Essential (primary) hypertension; I16.0 Hypertensive urgency; N39.42 Incontinence without sensory awareness; I77.1 Stricture of artery; E87.6 Hypokalemia; L89.152 Pressure ulcer of sacral region, stage 2; R13.10 Dysphagia, unspecified; Z83.3 Family history of diabetes mellitus; I69.391 Dysphagia following cerebral infarction; D63.8 Anemia in other chronic diseases classified elsewhere
CPT/HCPCS: 36415; 70450; 71020; 74230; 80048; 80053; 80061; 81001; 82270; 82962; 83036; 85025; 85027; 87086; J0360